=== PATIENT | male | born 1990 | race African-American/Black ===

== ENCOUNTER 2020-04-25 03:08 | Emergency (ER) | payer BC ==
[~2020-04-25] VITALS: Ht 182.9 cm; Wt 112.5 kg
[2020-04-25 06:02] VITALS: BP 123/84
== END 2020-04-25 06:28 | disposition home or self-care (01) ==
LOC: ER 03:09
DX: G43.909 Migraine, unspecified, not intractable, without status migrainosus (principal)
CPT/HCPCS: 70450